=== PATIENT | male | born 1985 | race Caucasian/White ===

== ENCOUNTER 2021-08-12 11:17 | Emergency (ER) | payer SELFPAY ==
[2021-08-12 11:33] VITALS: BP 116/72; PULSE 66; RESP 18; TEMP 36.5; O2SAT 100; BMI 23.7
--- NOTE | 2021-08-12 12:51 | ED.BACK ---
HPI - Back Pain/Injury General Chief Complaint: Back Pain/Injury Stated Complaint: back pain Time Seen by Provider: 08/12/21 12:46 Source: patient Mode of arrival: ambulatory Limitations: no limitations History of Present Illness HPI Narrative: 36 yo male no known medical history presents to the ED with 3 weeks of progressively worsening lower back pain. He states that the pain started at work. 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 He states that the back pain is worse with movement, better at rest. He states that it is bilateral, but worse on the right side, and at times radiates into his right leg just above the knee. He rates the pain 10/10, intermittent in nature. He denies chest pain, shortness breath, fevers, chills, nausea, vomiting, abdominal pain, recent sick contacts, trauma to the area. He is not an IV drug user. He is never had back surgeries in the past, or problems with his back. MD elicited complaint: back pain Onset (ago): week(s) (3) Timing: intermittent Severity: severe Pain scale (0-10): 10 Quality: sharp Location: lumbar spine Radiation: right upper leg Exacerbating factors: movement and walking Relieving factors: none Context: while lifting (thinks it was due to heavy lifting at work, concrete ) Associated symptoms: denies other symptoms Treatments prior to arrival: NSAIDS Work related injury: Yes Related Data Previous Rx's Medication Instructions Recorded cyclobenzaprine 10 mg tablet 10 mg PO Q8H PRN #14 tab 08/12/21 lidocaine 5 % topical patch 1 patch TOPICAL DAILY #15 ea 08/12/21 (Lidoderm) oxycodone 5 mg tablet 5 mg PO Q6H PRN #14 tab 08/12/21 prednisone 20 mg tablet 40 mg PO DAILY 5 Days #10 tab 08/12/21 Allergies Allergy/AdvReac Type Severity Reaction Status Date / Time No Known Allergies Allergy Verified 08/12/21 12:46 Review of Systems Review of Systems: Constitutional : No trauma, No Weight loss, No Fever, No Chills, ENT/Mouth : No Hearing loss, No Ear Pain, No Nasal Congestion, No Sinus Pain, No Hoarseness, No sore throat, No Rhinorrhea, No Swallowing Difficulty Cardiovascular : No Chest Pain, No SOB Respiratory : No Cough, No Dyspnea Gastrointestinal : No Nausea, No Vomiting, No Diarrhea, No abdominal Pain, No Hematochezia, No Melena Genitourinary : No Dysuria, No Urinary Frequency, No Hematuria, No Urinary or Bowel Incontinence/retention Musculoskeletal : + Back pain, No neck pain, No joint stiffness, No joint swelling Skin : No Skin Lesions, No rash or signs of infection Neuro : No Weakness, No radiation, No Numbness, No Paresthesias, No headache, no loss of bowel or bladder incontinence, no saddle anesthesia Denies history of IV drug usage. Yes all other systems are reviewed and are negative [facility] Past Medical History Attestation statement: The following information was validated with the patient. Social History Social History Advance Directives: No Advance Directives Information Provided: Yes Physical Exam Vital Signs: Vital Signs: Last Vital Signs Temp 97.7 F 08/12/21 11:33 Pulse 66 08/12/21 11:33 Resp 18 08/12/21 11:33 BP 116/72 08/12/21 11:33 Pulse Ox 100 08/12/21 11:33 Body Mass Index 23.7 vital signs have been reviewed as normal and appeared to be correct. Blood pressure normal. Heart rate normal. Respiration rate normal. Temperature normal. Oxygen saturation normal. Appearance: Alert. Oriented X3. No acute distress. Head: Normal external exam. Normocephalic. Atraumatic. Eyes: PERRLA. EOMI. Conjunctiva and sclera normal. Eyelids normal. ENT: EAC normal. TM's Normal. Pharynx normal. Uvula midline. Moist mucous membranes. No trismus noted. No drooling noted. No muffled voice noted. CVS: Normal heart rate and rhythm. Heart sound normal. No murmurs noted. Pulses normal throughout. Respiratory: No respiratory distress. Painless inspiration. Breath sounds normal. No wheezes/rales/rhonchi noted. Chest nontender. No accessory muscle usage noted or decreased air movement noted. Abdomen: Soft and nontender. Bowel sounds normal in all 4 quadrants. No distention noted. No organomegaly noted. No visible injury noted. Back: No CVA tenderness. Full range of motion noted. + pain with range of motion No obvious deformities, or edema. Mild para-spinal muscular tenderness from lumbar region to coccyx. Full ROM in back and lower extremities. 5/5 strength hip extension/flexion, abduction, adduction. Mild Lumbar pain with hip flexion against resistance. Straight leg raise test negative on right; Straight leg raise test negative on left; Reflexes normal ankle and knee bilaterally; EHL motor strength normal bilaterally. No rashes/lesion/induration/fluctuance or signs infection noted. Skin: Skin warm and dry. Normal skin color. Normal skin turgor. No rashes/lesions/lacerations noted. Extremities: No lower extremity edema. Extremities exhibit normal range of motion. Extremities nontender. Neuro: Oriented X 3. No motor deficit. No sensory deficit. Reflexes normal. Patient has a normal steady gait. MDM - Back Pain/Injury MDM Narrative Medical decision making narrative: 36-year-old male presents to the emergency department with 3 weeks of progressively worsening lower back pain, he thinks this started at work when he was doing some heavy lifting, he works construction in frequently lifts heavy objects. He states that the pain is bilateral, is worse in the right side, and at time radiates down his right leg right above the knee. No previous back surgeries. Denies trauma to the area. Denies red flag symptoms such as fevers, chills, numbness, tingling, paresthesias, urinary incontinence, incontinence of stool, changes in urination, weakness. Not an IV drug user. Upon physical examination there is mild tenderness to to palpation of paraspinous muscles in the lumbar region. Full range of motion to the back, however painful. Negative straight leg raise bilaterally. He has 5/5 strength to upper and lower extremities. No focal neuro deficits. 2+ reflexes equal in bilateral. No saddle paresthesias. VSS not febrile or tachycardic, no concern for epidural abcess. At this time patient's story, and history and physical exam were not consistent with cauda equina, or epidural abscess. Patient does not have any red flag symptoms. And this back pain is secondary to heavy lifting. At this time I offered the patient to have an x-ray that math, however I informed him that this is likely not going to show anything since he has not had trauma to the area. He decided that a back x-ray would not be a good idea at this time. He agrees that he thinks that this pain is secondary to heavy lifting, and wearing tear. He will be sent home with pain medication, prednisone, muscle relaxer, lidocaine patch. He has been advised to follow up with [facility]. And has been told to return to the emergency department with new or worsening symptoms. Medical Records Attestation: I reviewed the patient's medical records. Discharge Plan Discharge Clinical Impression: Strain of lumbar region, Work related injury, Sciatica Patient Disposition: Home, Self-Care Instructions: Sciatica (ED), Low Back Strain (ED), Lower Back Exercises (ED) Additional Instructions: Follow up with PCP Return to the ED with new or worsening symptoms Prescriptions: New prednisone 20 mg tablet 40 mg PO DAILY 5 Days Qty: 10 RF: 0 lidocaine [Lidoderm] 5 % adhesive patch,medicated 1 patch topical DAILY Qty: 15 RF: 0 oxycodone 5 mg tablet 5 mg PO Q6H PRN (Reason: pain) Qty: 14 RF: 0 cyclobenzaprine 10 mg tablet 10 mg PO Q8H PRN (Reason: Muscle spasm) Qty: 14 RF: 0 Referrals: Physician,None [Primary Care Provider] - 2 days Stand Alone Forms: Work/School Release Interventions: ED Discharge Assessment Last Done: 08/12/21 13:22 Discharge Date/Time: 08/12/21 13:22 Print Language: Icelandic
[2021-08-12] MEDS: Cyclobenzaprine HCl 5 MG TABLET PO (13:12)
[2021-08-12] MEDS: oxyCODONE HCl Immed Release 5 MG TABLET PO (13:13)
[2021-08-12] MEDS: Cyclobenzaprine HCl 5 MG TABLET 10 MG PO (13:13)
[2021-08-12] MEDS: predniSONE 20 MG TABLET 40 MG PO (13:14)
[2021-08-12] MEDS: Lidocaine 4 % Patch ADH..PATCH 1 PATCH TRANSDERMA (13:16)
== END 2021-08-12 13:22 | disposition home or self-care (01) ==
PROVIDERS: Emergency Provider Emergency Medicine
DX: S39.012A Strain of muscle, fascia and tendon of lower back, initial encounter (principal); M54.40 Lumbago with sciatica, unspecified side; X50.0XXA Overexertion from strenuous movement or load, initial encounter; Y93.H3 Activity, building and construction; Y92.9 Unspecified place or not applicable; Y99.0 Civilian activity done for income or pay
CPT/HCPCS: 99283; 99284